=== PATIENT | male | born 2000 | race Caucasian/White ===

== ENCOUNTER 2021-04-10 12:01 | Emergency (ER) | payer OTHER, SELFPAY ==
[2021-04-10 12:11] VITALS: BP 137/77; PULSE 62; RESP 18; TEMP 36.6; O2SAT 99
--- NOTE | 2021-04-10 12:25 | ED.GENADULT ---
HPI - General Adult General Chief complaint: Skin/Abscess/Foreign Body Stated complaint: Rash Source: patient Mode of arrival: ambulatory Limitations: no limitations History of Present Illness HPI narrative: 20 y/o male. PMHx none reported. Presents to ED today with acute complaints of blistering and redness located to lower nose and around mouth for the past 72 hours. He tells me that he has been recently exposed to his child whom has had similar issues after being at daycare, however his child has since improved. No fever. No intraoral involvement, dyspnea, dysphagia. No additional areas of integumentary involvement. Related Data Allergies Allergy/AdvReac Type Severity Reaction Status Date / Time No Known Allergies Allergy Verified 04/10/21 12:21 Review of Systems Review of Systems: CONSTITUTIONAL: Denies fever, chills, sweats. EYES: Denies visual changes, redness, discharge. ENT: Denies rhinorrhea, congestion, sore throat, otalgia. CARDIOVASCULAR: Denies chest pain, palpitations, edema. RESPIRATORY: Denies dyspnea, wheezing, cough GASTROINTESTINAL: Denies abdominal pain, nausea, vomiting, diarrhea. GENITOURINARY: Denies dysuria, hematuria, abnormal discharge SKIN: Positive redness and blistering nose and extrernal mouth. MUSCULOSKELETAL: Denies acute back pain, joint pain, or myalgia. NEUROLOGIC: Denies numbness, or focal weakness. PSYCHIATRIC: Denies anxiety or depression. All systems reviewed & are unremarkable except as noted in HPI and below PMFSH Surgical History Surgical History H/O elbow surgery Family History Family History Father Hypertension Other Family history of gastrointestinal disorder Family history of hearing loss Family history of kidney stones Social History Social History Smoking status: Never smoker Second hand tobacco smoke exposure: No Alcohol intake: current Drinks per week: 3 Substance use: never Substance use type: does not use Gender identity (if verbalized by the patient): Male Spiritual care concerns: No Agree to blood products: Yes Exam Narrative: GENERAL: This is a well-nourished, well-developed adult, in no apparent distress. HEAD: normocephalic, atraumatic. EYES: PERRL. Sclera clear/white. EARS: External ears normal, auditory canals clear and without drainage, TMs normal. NOSE: External nose normal. Positive Rhinorrhea, no obstruction, nares patent. THROAT: Mucous membranes moist, posterior pharynx clear. No exudates. NECK: Neck supple, non-tender without lymphadenopathy, masses or thyromegaly. CARDIOVASCULAR: Regular rate and rhythm without murmurs, gallops, or rubs. RESPIRATORY: Clear to auscultation. Breath sounds equal bilaterally. No wheezes, rales, or rhonchi. GASTROINTESTINAL: Abdomen soft, non-tender, nondistended. Bowel sounds are active. No guarding. SKIN: warm, intact. With erythematous sores surrounding lower nares and external mouth, some mild blistering and honey-colored crusts. No intra-oral mucous membrane involvement. No deep tissue wounds. Remainder of integumentary exam is negative. NEURO: Alert, active, and age appropriate. No focal neurologic deficits. Course Vital Signs Vital signs: Vital Signs Temperature 36.6 C 04/10/21 12:11 Pulse Rate 62 04/10/21 12:11 Respiratory Rate 18 04/10/21 12:11 Blood Pressure 137/77 04/10/21 12:11 Pulse Oximetry 99 04/10/21 12:11 Temperature 36.6 C 04/10/21 12:11 Pulse Rate 62 04/10/21 12:11 Respiratory Rate 18 04/10/21 12:11 Blood Pressure 137/77 04/10/21 12:11 Pulse Oximetry 99 04/10/21 12:11 Medical Decision Making MDM Narrative Medical decision making narrative: -PE consistent with Impetigo, also considering young child source of recent exposure. -Start Augmentin and t
== END 2021-04-10 12:30 | disposition home or self-care (01) ==
PROVIDERS: Emergency Provider Nurse Practitioner Adult Health; PCP Family Medicine
DX: L01.00 Impetigo, unspecified (principal)
CPT/HCPCS: 99213; G0463

== ENCOUNTER 2021-10-17 08:04 | Outpatient (CLI) | payer OTHER, SELFPAY ==
--- NOTE | 2021-10-19 12:37 | WPDHOMESLEEP ---
Sleep Study - Home Unattended Date of Study: 10/17/21 Ordering Provider: Elda Raygoza DO Interpreting Provider: Jacqui Daniel DO Home Sleep Study Type: Apnea Link Air Height: 1.96 m Weight: 122.47 kg Body Mass Index: 32.0 Neck Circumference (inches): 19 [place]: 14 Reason for Sleep Study Unrefreshing sleep, loud snoring and choking during sleep. Sleep History The patient is a 20-year-old male who had a home sleep test ordered by his primary care doctor due to unrefreshing sleep. The patient rarely awakens from sleep short of breath. He occasionally awakens at night with heartburn, belching or cough. He constantly snores loud enough that others complain. He occasionally has trouble sleeping when he has a cold. He rarely wakes up gasping for air throughout the night. He frequently has breathing problems at night. He frequently sweats excessively at night. He denies heart palpitations or irregular heartbeats during the night. He constantly falls asleep during the day but never while driving. He denies sleep paralysis and cataplexy. He frequently has trouble at school or work due to sleepiness. He occasionally has vivid dreamlike scenes upon awakening or falling asleep he denies having nightmares. He occasionally has thoughts racing through his. He rarely feels sad or depressed. He rarely has anxiety. Rarely notices parts of his body jerk. He denies kicking during the night. He denies having crawling and aching feelings in his legs as well as leg pain during the night. He denies grinding his teeth during sleep but rarely awakens with morning jaw pain. He is occasionally bothered by pain during the day but rarely awakened by pain during night. He occasionally wakes up feeling stiff in morning. He rarely wakes up with sore achy muscles. He occasionally wakes up with pain in the neck, spine other joints. He goes to bed between 10:00 p.m. and midnight on both weekdays and weekends. It takes him less than 30 minutes to fall asleep. He wakes up throughout the night very often. When he awakens, he will roll over and go back to sleep. He is unsure how long it takes him to fall back asleep. He wakes up at 6:00 a.m. on weekdays and between 8 and 10:00 a.m. on the weekends. He typically gets 6-8 hours of sleep per night. He will stay in bed for 10 minutes after waking up on weekdays and 30 minutes on to an hour on the weekends. He currently lives with his parents and child. Does not consume any caffeinated beverages within 2 hours of bedtime. He does not engage in physical exercise before bedtime. He will watch television before falling asleep. He does take naps in the afternoon with the evening and they are refreshing. He drinks 1-3 caffeinated beverages per week. He drinks 1-3 alcoholic beverages per week. He denies tobacco and recreational drug use. PMFSH Past Medical History Medical History Hx MRSA infection left elbow Surgical History Surgical History H/O elbow surgery Family History Family History Father Hypertension Other Family history of gastrointestinal disorder Family history of hearing loss Family history of kidney stones Social History Social History Smoking status: Never smoker Second hand tobacco smoke exposure: No Alcohol intake: current Drinks per week: 3 Substance use: never Substance use type: does not use Gender identity (if verbalized by the patient): Male Spiritual care concerns: No Agree to blood products: Yes Medications Home Medications Medication Instructions Recorded Confirmed Type mupirocin 1 applic TOPICAL BID #22 g 04/10/21 Rx albuterol sulfate 90 mcg/actuation 2 puff INHALATION Q4H PRN #8.5 g 05/24/21 Rx a
[2021-10-19 12:41] VITALS: BMI 32.0
== END 2021-10-18 10:37 | disposition home or self-care (01) ==
LOC: ANHCSM 08:07
PROVIDERS: PCP Family Medicine; Visit Provider Family Medicine
DX: G47.33 Obstructive sleep apnea (adult) (pediatric) (principal); R40.0 Somnolence
CPT/HCPCS: 95806

== ENCOUNTER 2022-05-27 11:01 | Emergency (ER) | payer OTHER, SELFPAY ==
[2022-05-27 11:10] VITALS: BP 140/72; PULSE 62; RESP 18; TEMP 36.3; O2SAT 98
--- NOTE | 2022-05-27 11:20 | ED.SKABFB ---
HPI - Skin/Abscess/Foreign Bdy General Chief complaint: Skin/Abscess/Foreign Body Stated complaint: bilateral foot irritation Source: patient Limitations: no limitations History of Present Illness HPI narrative: 21-year-old male presents to [facility] with complaints of athlete's foot to his bilateral feet for the past 2 months. Patient reports he has a long history of athlete's foot he reports his primary care provider gave him 2 different creams back in 2019 but he is unsure of the creams. Called [facility] in [place] and the only RX they hav diane record is mupirocin ointment. Patient reports that he has a history of athlete's foot since being in the since 2019. complaint: rash Onset (ago): month(s) (2) Location: L foot and R foot Severity: mild Relieving factors: none Exacerbating factors: none Associated symptoms: denies other symptoms Related Data Allergies Allergy/AdvReac Type Severity Reaction Status Date / Time No Known Allergies Allergy Verified 09/18/21 15:18 Review of Systems Constitutional: Constitutional: Denies chills, Denies fatigue, Denies fever(s) and Denies weakness ENT: Denies vertigo, Denies dizziness and Denies nasal congestion Cardiovascular: Cardiovascular: Denies chest pain Respiratory: Respiratory: Denies cough, Denies dyspnea and Denies wheezing Gastrointestinal: Gastrointestinal: Denies abdominal pain, Denies diarrhea, Denies nausea and Denies vomiting Integumentary/Breasts: Skin/Breast: Reports rash Neurologic: Denies vertigo, Denies dizziness and Denies syncope PMFSH Past Medical History Medical History Hx MRSA infection left elbow Surgical History Surgical History H/O elbow surgery Family History Family History Father Hypertension Other Family history of gastrointestinal disorder Family history of hearing loss Family history of kidney stones Social History Social History Smoking status: Never smoker Second hand tobacco smoke exposure: No Alcohol intake: current Drinks per week: 3 Substance use: never Substance use type: does not use Gender identity (if verbalized by the patient): Male Spiritual care concerns: No Agree to blood products: Yes Comments At time of signature, I agree with nursing past medical, surgical, social and family history. There is no relevant family history pertinent to the presenting complaint. Exam Const: General: healthy appearing Nutritional Appearance: well nourished Orientation/consciousness: patient oriented x3 Limitations: no limitations Neck: Neck: normal visual inspection Resp: Effort & Inspection: normal respiratory effort and not labored Auscultation: clear to auscultation bilaterally, no crackles, no rales, no rhonchi and no wheezes Cardio: Rate: regular rate Rhythm: regular rhythm Heart sounds: no murmurs Skin: General skin exam: normal color Wounds: no wounds Other: Erythematous, excoriated, scaly type rash noted to bilateral toes representing athlete's foot. There is no purulent drainage or signs infection noted. Neuro: General: patient oriented x3 Speech: normal speech Gait exam (Neuro): Normal gait present Psych: Mental Status: mental status grossly normal Affect: normal affect Attitude: cooperative Course Course Level of Care: Express Care Visit Vital Signs Vital signs: Vital Signs Temperature 36.3 C L 05/27/22 11:10 Pulse Rate 62 05/27/22 11:10 Respiratory Rate 18 05/27/22 11:10 Blood Pressure 140/72 05/27/22 11:10 Pulse Oximetry 98 05/27/22 11:10 Oxygen Delivery Room Air 05/27/22 11:10 Temperature 36.3 C L 05/27/22 11:10 Pulse Rate 62 05/27/22 11:10 Respiratory Rate 18 05/27/22 11:10 Blood Pressure 140/72 05/27/22 11:
== END 2022-05-27 11:37 | disposition home or self-care (01) ==
PROVIDERS: Emergency Provider Nurse Practitioner Family; PCP Family Medicine
DX: B35.3 Tinea pedis (principal); Z86.14 Personal history of Methicillin resistant Staphylococcus aureus infection
CPT/HCPCS: 99213; G0463

== ENCOUNTER 2022-11-06 17:53 | Emergency (ER) | payer OTHER, SELFPAY ==
--- NOTE | 2022-11-06 18:12 | ED.URI ---
HPI - URI/Sore Throat General Chief Complaint: Upper Respiratory Infection Stated Complaint: congestion Time Seen by Provider: 11/06/22 18:13 Source: patient Mode of arrival: ambulatory Limitations: no limitations History of Present Illness HPI Narrative: 22-year-old male presents with complaint of nasal congestion, postnasal drainage, cough for 3 weeks. Reports that he is coughing on drainage, intermittent sore throat from drainage. Is not taking any [id number] medications to treat his symptoms. He reports that he likes to let his body naturally fight off infections . He states that symptoms 1st started 3 weeks ago with a fever of 101 F. fever resolved after couple days. Denies chest pain and shortness of breath. Not having any pain at this time. All systems reviewed and negative except as noted above. Related Data Allergies Allergy/AdvReac Type Severity Reaction Status Date / Time No Known Allergies Allergy Verified 09/18/21 15:18 Review of Systems Review of Systems: CONSTITUTIONAL: Denies fever, chills, or sweats. EYES: Denies visual changes, redness, or discharge. ENT: Reports rhinorrhea, congestion, sore throat,. Denies otalgia. CARDIOVASCULAR: Denies chest pain, palpitations, or edema. RESPIRATORY: Denies cough or dyspnea. GASTROINTESTINAL: Denies abdominal pain, nausea, vomiting, or diarrhea. GENITOURINARY: Denies dysuria or hematuria. SKIN: Denies rash or itching. MUSCULOSKELETAL: Denies back pain, joint pain, or myalgia. NEUROLOGIC: Denies headache, numbness, or weakness. PSYCHIATRIC: Denies anxiety or depression. All other systems reviewed are negative, except as documented in HPI. [facility] Past Medical History Medical History Hx MRSA infection left elbow Surgical History Surgical History H/O elbow surgery Family History Family History Father Hypertension Other Family history of gastrointestinal disorder Family history of hearing loss Family history of kidney stones Social History Social History Smoking status: Never smoker Second hand tobacco smoke exposure: No Alcohol intake: current Drinks per week: 3 Substance use: never Substance use type: does not use Living arrangements: with family Occupation/Education: occupation Gender identity (if verbalized by the patient): Male Spiritual care concerns: No Agree to blood products: Yes Comments At time of signature, agree with nursing past medical, surgical, social and family history. There is no relevant family history pertinent to the presenting complaint. Exam Narrative: GENERAL: This is a well-nourished, well-developed patient, in no apparent distress. HEAD: normocephalic, atraumatic. EYES: PERRL. Sclera clear/white. Vision is grossly intact. EARS: External ears normal, auditory canals clear and without drainage, TMs normal without perforation. Hearing grossly intact. NOSE: External nose normal with prelim nasal drainage, erythema to nares. THROAT: Mucous membranes moist, Erythema to posterior pharynx with postnasal drainage. NECK: Neck supple, non-tender without lymphadenopathy, masses or thyromegaly. CARDIOVASCULAR: Regular rate and rhythm without murmurs, gallops, or rubs. RESPIRATORY: Clear to auscultation. Breath sounds equal bilaterally. No wheezes, rales, or rhonchi. SKIN: warm, Dry, intact with no suspicious lesions or rash, good texture and turgor. NEURO: awake, alert, and oriented to person, place and time. There were no obvious focal neurologic abnormalities. EXTREMITIES: No joint tenderness, effusion, or edema noted. Course Course Level of Care: Express Care Visit Vital Signs Vital signs: Vital Signs Temperature 36.3 C L 11/06/22 18:21 Pulse Rate 65
[2022-11-06 18:21] VITALS: BP 136/79; PULSE 65; RESP 18; TEMP 36.3; O2SAT 100
== END 2022-11-06 18:24 | disposition home or self-care (01) ==
PROVIDERS: Emergency Provider Nurse Practitioner Family; PCP Family Medicine
DX: J01.90 Acute sinusitis, unspecified (principal); Z86.14 Personal history of Methicillin resistant Staphylococcus aureus infection
CPT/HCPCS: 99213; G0463

== ENCOUNTER 2022-11-25 15:02 | Emergency (ER) | payer OTHER, SELFPAY ==
[2022-11-25 15:15] VITALS: BP 135/82; PULSE 98; RESP 18; TEMP 36.5; O2SAT 98
--- NOTE | 2022-11-25 15:27 | ED.SKABFB ---
HPI - Skin/Abscess/Foreign Bdy General Chief complaint: Skin/Abscess/Foreign Body Stated complaint: . Time Seen by Provider: 11/25/22 15:06 Source: patient Mode of arrival: ambulatory Limitations: no limitations History of Present Illness HPI narrative: 22-year-old male presents to [facility] with complaints of chronic athlete's feet to bilateral feet since 2019. Patient reports that symptoms started when he was overseas in [place] working. Patient reports that he was evaluated here few months ago for same symptoms and prescription was called in the wrong pharmacy so he was unable to start medications and did not call back to inform us. Patient has not tried applying any [id number] medications to feet. Patient denies fever, body aches, chills, nausea, diarrhea MD complaint: rash Onset (ago): year(s) (5) Location: L foot and R foot Relieving factors: none Exacerbating factors: none Associated symptoms: denies other symptoms Treatments prior to arrival: none Related Data Allergies Allergy/AdvReac Type Severity Reaction Status Date / Time No Known Allergies Allergy Verified 11/25/22 15:19 Review of Systems Constitutional: Constitutional: Denies chills, Denies fatigue, Denies fever(s) and Denies weakness ENT: Denies dizziness, Denies epistaxis and Denies nasal congestion Cardiovascular: Cardiovascular: Denies chest pain Respiratory: Respiratory: Denies cough, Denies dyspnea and Denies wheezing Gastrointestinal: Gastrointestinal: Denies diarrhea, Denies nausea and Denies vomiting Musculoskeletal: Musculoskeletal: Denies arthralgias, Denies joint swelling and Denies muscle cramps Integumentary/Breasts: Skin/Breast: Reports rash Comments: Athlete's feet to bilateral feet PMFSH Past Medical History Medical History Hx MRSA infection left elbow Surgical History Surgical History H/O elbow surgery Family History Family History Father Hypertension Other Family history of gastrointestinal disorder Family history of hearing loss Family history of kidney stones Social History Social History Smoking status: Never smoker Second hand tobacco smoke exposure: No Alcohol intake: current Drinks per week: 3 Substance use: never Substance use type: does not use Living arrangements: with family Occupation/Education: occupation Gender identity (if verbalized by the patient): Male Spiritual care concerns: No Agree to blood products: Yes Comments At time of signature, I agree with nursing past medical, surgical, social and family history. There is no relevant family history pertinent to the presenting complaint. Exam Const: General: healthy appearing and no acute distress Nutritional Appearance: well nourished Orientation/consciousness: patient oriented x3 Limitations: no limitations HENMT: Head: normal to inspection Eyes: Conjunctivae: conjunctivae normal Neck: Neck: normal visual inspection Resp: Effort & Inspection: normal respiratory effort and not labored Auscultation: clear to auscultation bilaterally, no crackles, no rales, no rhonchi and no wheezes Cardio: Rate: regular rate Rhythm: regular rhythm Heart sounds: no murmurs Skin: General skin exam: normal color Wounds: no wounds Other: Excoriation and Scaliness noted to bilateral toes representing athlete's feet. There is no erythema, bruising, bleeding, purulent drainage or signs of infection noted Neuro: General: patient oriented x3 Speech: normal speech Gait exam (Neuro): Normal gait present Psych: Affect: normal affect Attitude: cooperative Course Course Level of Care: Express Care Visit Vital Signs Vital signs: Vital Signs Temperature 36.5 C 11/25/22 15:15 Pulse Rate
== END 2022-11-25 15:37 | disposition home or self-care (01) ==
PROVIDERS: Emergency Provider Nurse Practitioner Family; PCP Family Medicine
DX: B35.3 Tinea pedis (principal); Z86.14 Personal history of Methicillin resistant Staphylococcus aureus infection
CPT/HCPCS: 99213; G0463